=== PATIENT | male | born 1950 | race Caucasian/White ===

== ENCOUNTER 2022-05-14 14:53 | Inpatient (IN) ==
[2022-05-14] MEDS ORDERED: 0.9 % Sodium Chloride 1,000 ML IVC ONE (15:29)
[2022-05-14 15:45] LABS: Bilirubin,Urine Negative (Negative); Blood,Urine Negative (Negative); Clarity,Urine Clear (Clear); Color,Urine Yellow (Yellow); Glucose,Urine (UA) Normal (Normal); Ketones,Urine Negative (Negative); Leukocyte Esterase,Urine Negative (Negative); Nitrite,Urine Negative (Negative); Protein,Urine Negative (Neg-Trace); Urobilinogen,Urine Normal (Normal)
[2022-05-14 15:54] LABS: Basophils # 0.1 K/mcL (0.0-0.2); Basophils % 0.9 %; Eosinophils # 0.1 K/mcL (0.0-0.6); Eosinophils % 1.5 %; Hematocrit 39.3 % (37.5-50.1); Hemoglobin 13.1 g/dL (12.9-16.9); Immature Granulocytes % 0.3 % (0-4); Lymphocytes # 0.6 K/mcL (0.6-4.6); Lymphocytes % 7.7 %; Mean Corpuscular HGB Conc 33.3 g/dL (31.6-35.5); Mean Corpuscular Hemoglobin 30.3 pg (28.0-33.3); Mean Platelet Volume 10.8 fL (9.4-12.4); Monocytes # 1.4 K/mcL (0.0-1.3); Neutrophils # 5.7 K/mcL (1.6-8.9); Platelet Count 200 K/mcL (140-400); Red Blood Count 4.32 M/mcL (4.19-5.50); Segmented Neutrophils % 71.6 %; White Blood Count 7.9 K/mcL (4.3-11.1)
[2022-05-14 16:13] LABS: Alanine Aminotransferase 22 Units/L (7-52); Albumin 3.7 g/dL (3.5-5.7); Albumin/Globulin Ratio 1.5 (1.1-2.2); Alkaline Phosphatase 75 Units/L (34-104); Aspartate Amino Transferase 22 Units/L (13-39); BUN/Creatinine Ratio 12 (6-26); Bilirubin,Indirect 0.3 mg/dL (0.0-1.0); Bilirubin,Total 0.3 mg/dL (0.3-1.0); Blood Urea Nitrogen 12 mg/dL (8-23); Calcium 9.1 mg/dL (8.6-10.3); Carbon Dioxide 32 mEq/L (23-29); Chloride 95 mEq/L (98-107); Globulin 2.4 g/dL (2.4-3.5); Glucose 97 mg/dL (70-105); Osmolality,Calculated 276 (280-300); Potassium 4.1 mEq/L (3.5-5.1); Sodium 133 mEq/L (136-145); Total Protein 6.1 g/dL (6.4-8.9); Troponin I < 0.03 ng/mL (< 0.04); eGFR For African Americans > 60 (> 60); eGFR For Non-African Americans > 60 (> 60)
[2022-05-14] MEDS ORDERED: Naloxone 0.4 MG/ML INJ IVP PRN (16:53)
[2022-05-14] MEDS: Carbidopa/Levodopa 25/100 TABLET PO SCH (21:28)
[2022-05-14] MEDS: Acetaminophen 325 MG TABLET PO PRN (21:28)
[2022-05-14] MEDS: haloperidoL 1 MG TABLET PO SCH (21:28)
[2022-05-14] MEDS: Budesonide/Formoterol 160/4.5 1 PUFF INH IH SCH (22:17)
[2022-05-15] MEDS: *HR* Enoxaparin 40 MG/0.4 ML SYRINGE SQ SCH (06:16)
[2022-05-15] MEDS: Budesonide/Formoterol 160/4.5 1 PUFF INH IH SCH ×2 (09:09→22:24)
[2022-05-15] MEDS: Carbidopa/Levodopa 25/100 TABLET PO SCH ×3 (09:45→22:05)
[2022-05-15] MEDS: Loratadine 10 MG TABLET PO SCH (09:45)
[2022-05-15] MEDS: haloperidoL 1 MG TABLET PO SCH ×2 (09:45→22:05)
[2022-05-15] MEDS: Furosemide 20 MG TABLET PO SCH (09:46)
[2022-05-15] MEDS: dexAMETHasone 4 MG TABLET PO SCH (09:46)
[2022-05-15] MEDS: Fluticasone Propionate Nasal 50 MCG/SPRAY BOTTLE NS SCH (09:46)
[2022-05-15 09:58] LABS: Hematocrit 42.2 % (37.5-50.1); Hemoglobin 13.8 g/dL (12.9-16.9); Mean Corpuscular HGB Conc 32.7 g/dL (31.6-35.5); Mean Corpuscular Hemoglobin 30.5 pg (28.0-33.3); Mean Corpuscular Volume 93.4 fL (83.0-100.0); Mean Platelet Volume 11.4 fL (9.4-12.4); Platelet Count 205 K/mcL (140-400); Red Blood Count 4.52 M/mcL (4.19-5.50); Red Cell Distribution Width 15.4 % (11.5-14.5); White Blood Count 7.5 K/mcL (4.3-11.1)
[2022-05-15 10:16] LABS: BUN/Creatinine Ratio 10 (6-26); Blood Urea Nitrogen 11 mg/dL (8-23); Calcium 8.9 mg/dL (8.6-10.3); Carbon Dioxide 31 mEq/L (23-29); Chloride 99 mEq/L (98-107); Glucose 159 mg/dL (70-105); Magnesium 1.8 mg/dL (1.6-2.6); Osmolality,Calculated 289 (280-300); Potassium 3.6 mEq/L (3.5-5.1); Sodium 138 mEq/L (136-145); eGFR For African Americans > 60 (> 60); eGFR For Non-African Americans > 60 (> 60)
[2022-05-15] MEDS: Acetaminophen 325 MG TABLET PO PRN (22:06)
[2022-05-16] MEDS: *HR* Enoxaparin 40 MG/0.4 ML SYRINGE SQ SCH (05:25)
[2022-05-16] MEDS: Carbidopa/Levodopa 25/100 TABLET PO SCH ×3 (09:45→20:50)
[2022-05-16] MEDS: Furosemide 20 MG TABLET PO SCH (09:45)
[2022-05-16] MEDS: dexAMETHasone 4 MG TABLET PO SCH (09:45)
[2022-05-16] MEDS: haloperidoL 1 MG TABLET PO SCH ×2 (09:45→20:50)
[2022-05-16] MEDS: Fluticasone Propionate Nasal 50 MCG/SPRAY BOTTLE NS SCH (09:46)
[2022-05-16] MEDS: Loratadine 10 MG TABLET PO SCH (09:46)
[2022-05-16] MEDS: Budesonide/Formoterol 160/4.5 1 PUFF INH IH SCH ×2 (10:08→22:32)
[2022-05-16] MEDS: Acetaminophen 325 MG TABLET PO PRN (14:17)
[2022-05-17] MEDS: *HR* Enoxaparin 40 MG/0.4 ML SYRINGE SQ SCH (06:09)
[2022-05-17 07:08] LABS: Basophils % 0.2 %; Hematocrit 42.2 % (37.5-50.1); Immature Granulocytes % 0.3 % (0-4); Lymphocytes # 1.9 K/mcL (0.6-4.6); Lymphocytes % 12.7 %; Mean Corpuscular HGB Conc 33.2 g/dL (31.6-35.5); Mean Corpuscular Hemoglobin 30.1 pg (28.0-33.3); Mean Corpuscular Volume 90.8 fL (83.0-100.0); Mean Platelet Volume 11.4 fL (9.4-12.4); Monocytes # 1.6 K/mcL (0.0-1.3); Neutrophils # 11.3 K/mcL (1.6-8.9); Platelet Count 221 K/mcL (140-400); Red Blood Count 4.65 M/mcL (4.19-5.50); Red Cell Distribution Width 15.4 % (11.5-14.5); Segmented Neutrophils % 75.8 %; White Blood Count 14.9 K/mcL (4.3-11.1)
[2022-05-17 07:27] LABS: BUN/Creatinine Ratio 20 (6-26); Blood Urea Nitrogen 18 mg/dL (8-23); Calcium 8.5 mg/dL (8.6-10.3); Carbon Dioxide 32 mEq/L (23-29); Chloride 100 mEq/L (98-107); Glucose 99 mg/dL (70-105); Osmolality,Calculated 290 (280-300); Potassium 4.4 mEq/L (3.5-5.1); Sodium 139 mEq/L (136-145); eGFR For African Americans > 60 (> 60); eGFR For Non-African Americans > 60 (> 60)
[2022-05-17] MEDS ORDERED: Dexamethasone Sodium Phos/PF 10 MG/ML VIAL IVP SCH (09:00)
[2022-05-17] MEDS: Budesonide/Formoterol 160/4.5 1 PUFF INH IH SCH ×2 (09:40→21:28)
[2022-05-17] MEDS: haloperidoL 1 MG TABLET PO SCH ×2 (09:44→19:57)
[2022-05-17] MEDS: Carbidopa/Levodopa 25/100 TABLET PO SCH ×3 (09:44→19:57)
[2022-05-17] MEDS: Furosemide 20 MG TABLET PO SCH (09:44)
[2022-05-17] MEDS: Loratadine 10 MG TABLET PO SCH (09:44)
[2022-05-17] MEDS: Fluticasone Propionate Nasal 50 MCG/SPRAY BOTTLE NS SCH (09:46)
[2022-05-17] MEDS ORDERED: dexAMETHasone 4 MG TABLET PO SCH (09:51)
[2022-05-17] MEDS ORDERED: levoFLOXacin 750 MG/150 ML 750 MG/150 ML BAG IVPB SCH (11:15)
[2022-05-17] MEDS: Acetaminophen 325 MG TABLET PO PRN (19:57)
[2022-05-17] MEDS: levoFLOXacin 750 MG/150 ML 750 MG/150 ML BAG IVPB SCH (20:34)
[2022-05-17 23:46] LABS: Alanine Aminotransferase 26 Units/L (7-52); Aspartate Amino Transferase 27 Units/L (13-39)
[2022-05-18] MEDS: *HR* Enoxaparin 40 MG/0.4 ML SYRINGE SQ SCH (05:50)
[2022-05-18 06:48] LABS: Hematocrit 39.6 % (37.5-50.1); Hemoglobin 13.3 g/dL (12.9-16.9); Mean Corpuscular HGB Conc 33.6 g/dL (31.6-35.5); Mean Corpuscular Hemoglobin 30.5 pg (28.0-33.3); Mean Corpuscular Volume 90.8 fL (83.0-100.0); Platelet Count 216 K/mcL (140-400); Red Blood Count 4.36 M/mcL (4.19-5.50); Red Cell Distribution Width 15.3 % (11.5-14.5); White Blood Count 13.6 K/mcL (4.3-11.1)
[2022-05-18 07:19] LABS: Albumin 3.4 g/dL (3.5-5.7); Albumin/Globulin Ratio 1.2 (1.1-2.2); Bilirubin,Direct 0.1 mg/dL (0.0-0.2); Bilirubin,Indirect 0.5 mg/dL (0.0-1.0); Bilirubin,Total 0.6 mg/dL (0.3-1.0); Globulin 2.8 g/dL (2.4-3.5); Total Protein 6.2 g/dL (6.4-8.9)
[2022-05-18 07:22] LABS: BUN/Creatinine Ratio 15 (6-26); Blood Urea Nitrogen 13 mg/dL (8-23); Calcium 8.5 mg/dL (8.6-10.3); Carbon Dioxide 28 mEq/L (23-29); Chloride 101 mEq/L (98-107); Glucose 123 mg/dL (70-105); Magnesium 1.7 mg/dL (1.6-2.6); Osmolality,Calculated 285 (280-300); Potassium 4.1 mEq/L (3.5-5.1); Sodium 137 mEq/L (136-145); eGFR For African Americans > 60 (> 60); eGFR For Non-African Americans > 60 (> 60)
[2022-05-18] MEDS ORDERED: Remdesivir 200 MG in 0.9 % Sodium Chloride 100 ML IVPB ONE (09:00)
[2022-05-18] MEDS: Furosemide 20 MG TABLET PO SCH (09:08)
[2022-05-18] MEDS: Loratadine 10 MG TABLET PO SCH (09:08)
[2022-05-18] MEDS: haloperidoL 1 MG TABLET PO SCH ×2 (09:08→20:31)
[2022-05-18] MEDS: Dexamethasone Sodium Phos/PF 10 MG/ML VIAL IVP SCH (09:09)
[2022-05-18] MEDS: Fluticasone Propionate Nasal 50 MCG/SPRAY BOTTLE NS SCH (09:09)
[2022-05-18] MEDS: Carbidopa/Levodopa 25/100 TABLET PO SCH ×3 (09:09→20:31)
[2022-05-18] MEDS: Budesonide/Formoterol 160/4.5 1 PUFF INH IH SCH ×2 (09:11→22:17)
[2022-05-18 09:34] LABS: Ferritin 283 ng/mL (20-250)
[2022-05-18] MEDS: levoFLOXacin 750 MG/150 ML 750 MG/150 ML BAG IVPB SCH (20:32)
[2022-05-19] MEDS: *HR* Enoxaparin 40 MG/0.4 ML SYRINGE SQ SCH (05:52)
[2022-05-19 07:38] LABS: Basophils % 0.2 %; Hematocrit 37.6 % (37.5-50.1); Hemoglobin 12.6 g/dL (12.9-16.9); Immature Granulocytes % 0.6 % (0-4); Lymphocytes # 1.2 K/mcL (0.6-4.6); Lymphocytes % 10.1 %; Mean Corpuscular HGB Conc 33.5 g/dL (31.6-35.5); Mean Corpuscular Hemoglobin 30.3 pg (28.0-33.3); Mean Corpuscular Volume 90.4 fL (83.0-100.0); Mean Platelet Volume 10.8 fL (9.4-12.4); Monocytes # 1.3 K/mcL (0.0-1.3); Monocytes % 10.3 %; Platelet Count 233 K/mcL (140-400); Red Blood Count 4.16 M/mcL (4.19-5.50); Red Cell Distribution Width 15.1 % (11.5-14.5); Segmented Neutrophils % 78.8 %; White Blood Count 12.1 K/mcL (4.3-11.1)
[2022-05-19 07:52] LABS: Neutrophils # 9.5 K/mcL (1.6-8.9)
[2022-05-19 08:04] LABS: BUN/Creatinine Ratio 26 (6-26); Blood Urea Nitrogen 20 mg/dL (8-23); Calcium 8.4 mg/dL (8.6-10.3); Carbon Dioxide 28 mEq/L (23-29); Chloride 102 mEq/L (98-107); Glucose 125 mg/dL (70-105); Osmolality,Calculated 288 (280-300); Potassium 4.3 mEq/L (3.5-5.1); Sodium 137 mEq/L (136-145); eGFR For African Americans > 60 (> 60); eGFR For Non-African Americans > 60 (> 60)
[2022-05-19 08:05] LABS: Albumin 3.3 g/dL (3.5-5.7); Albumin/Globulin Ratio 1.2 (1.1-2.2); Bilirubin,Direct 0.1 mg/dL (0.0-0.2); Bilirubin,Indirect 0.3 mg/dL (0.0-1.0); Bilirubin,Total 0.4 mg/dL (0.3-1.0); Globulin 2.7 g/dL (2.4-3.5)
[2022-05-19] MEDS: Budesonide/Formoterol 160/4.5 1 PUFF INH IH SCH ×2 (08:40→20:58)
[2022-05-19] MEDS: Loratadine 10 MG TABLET PO SCH (09:43)
[2022-05-19] MEDS: haloperidoL 1 MG TABLET PO SCH ×2 (09:44→20:30)
[2022-05-19] MEDS: Furosemide 20 MG TABLET PO SCH (09:44)
[2022-05-19] MEDS: Fluticasone Propionate Nasal 50 MCG/SPRAY BOTTLE NS SCH (09:45)
[2022-05-19] MEDS: Carbidopa/Levodopa 25/100 TABLET PO SCH ×3 (09:45→20:30)
[2022-05-19] MEDS: Dexamethasone Sodium Phos/PF 10 MG/ML VIAL IVP SCH (10:57)
[2022-05-19] MEDS: Remdesivir 100 MG in 0.9 % Sodium Chloride 100 ML IVPB SCH (11:01)
[2022-05-19] MEDS: levoFLOXacin 750 MG/150 ML 750 MG/150 ML BAG IVPB SCH (20:31)
[2022-05-20] MEDS: Melatonin 3 MG TABLET PO PRN ×2 (01:47→21:47)
[2022-05-20 05:49] LABS: Hematocrit 35.7 % (37.5-50.1); Hemoglobin 12.1 g/dL (12.9-16.9); Mean Corpuscular HGB Conc 33.9 g/dL (31.6-35.5); Mean Corpuscular Hemoglobin 30.3 pg (28.0-33.3); Mean Corpuscular Volume 89.3 fL (83.0-100.0); Mean Platelet Volume 10.9 fL (9.4-12.4); Platelet Count 295 K/mcL (140-400); Red Cell Distribution Width 15.1 % (11.5-14.5); White Blood Count 11.3 K/mcL (4.3-11.1)
[2022-05-20 06:08] LABS: BUN/Creatinine Ratio 23 (6-26); Blood Urea Nitrogen 19 mg/dL (8-23); Calcium 8.3 mg/dL (8.6-10.3); Carbon Dioxide 28 mEq/L (23-29); Chloride 104 mEq/L (98-107); Glucose 130 mg/dL (70-105); Osmolality,Calculated 292 (280-300); Potassium 4.1 mEq/L (3.5-5.1); Sodium 139 mEq/L (136-145); eGFR For African Americans > 60 (> 60); eGFR For Non-African Americans > 60 (> 60)
[2022-05-20 06:09] LABS: Albumin 3.2 g/dL (3.5-5.7); Albumin/Globulin Ratio 1.2 (1.1-2.2); Bilirubin,Indirect 0.3 mg/dL (0.0-1.0); Bilirubin,Total 0.3 mg/dL (0.3-1.0); Globulin 2.6 g/dL (2.4-3.5); Total Protein 5.8 g/dL (6.4-8.9)
[2022-05-20] MEDS: *HR* Enoxaparin 40 MG/0.4 ML SYRINGE SQ SCH (06:12)
[2022-05-20] MEDS: Budesonide/Formoterol 160/4.5 1 PUFF INH IH SCH ×2 (09:10→20:51)
[2022-05-20] MEDS: haloperidoL 1 MG TABLET PO SCH ×2 (10:23→21:47)
[2022-05-20] MEDS: Furosemide 20 MG TABLET PO SCH (10:24)
[2022-05-20] MEDS: Loratadine 10 MG TABLET PO SCH (10:24)
[2022-05-20] MEDS: Carbidopa/Levodopa 25/100 TABLET PO SCH ×3 (10:24→21:47)
[2022-05-20] MEDS: Dexamethasone Sodium Phos/PF 10 MG/ML VIAL IVP SCH (10:25)
[2022-05-20] MEDS: Remdesivir 100 MG in 0.9 % Sodium Chloride 100 ML IVPB SCH (10:40)
[2022-05-20] MEDS: Fluticasone Propionate Nasal 50 MCG/SPRAY BOTTLE NS SCH (11:09)
[2022-05-20] MEDS: levoFLOXacin 750 MG/150 ML 750 MG/150 ML BAG IVPB SCH (21:47)
[2022-05-21] MEDS: *HR* Enoxaparin 40 MG/0.4 ML SYRINGE SQ SCH (06:06)
[2022-05-21 07:31] VITALS: BP 156/73; PULSE 69; RESP 18; TEMP 97.5
[2022-05-21 08:30] LABS: Albumin/Globulin Ratio 1.2 (1.1-2.2); Bilirubin,Direct 0.1 mg/dL (0.0-0.2); Bilirubin,Indirect 0.2 mg/dL (0.0-1.0); Bilirubin,Total 0.3 mg/dL (0.3-1.0); Globulin 2.5 g/dL (2.4-3.5); Total Protein 5.5 g/dL (6.4-8.9)
[2022-05-21] MEDS: Budesonide/Formoterol 160/4.5 1 PUFF INH IH SCH (08:35)
[2022-05-21] MEDS: Furosemide 20 MG TABLET PO SCH (09:48)
[2022-05-21] MEDS: Carbidopa/Levodopa 25/100 TABLET PO SCH ×2 (09:49→16:48)
[2022-05-21] MEDS: haloperidoL 1 MG TABLET PO SCH (09:49)
[2022-05-21] MEDS: Dexamethasone Sodium Phos/PF 10 MG/ML VIAL IVP SCH (09:49)
[2022-05-21] MEDS: Loratadine 10 MG TABLET PO SCH (09:50)
[2022-05-21] MEDS: Remdesivir 100 MG in 0.9 % Sodium Chloride 100 ML IVPB SCH (09:51)
[2022-05-21] MEDS: Fluticasone Propionate Nasal 50 MCG/SPRAY BOTTLE NS SCH (09:51)
[2022-05-21 16:09] VITALS: O2SAT 96
== END 2022-05-21 19:33 | disposition other institution (70) | DRG 177 ==
LOC: EMEROOPIK 14:53 → INPPIK 14:53
PROVIDERS: ADMIT Family Medicine; ATTEND Family Medicine

== ENCOUNTER 2022-05-21 11:11 | Inpatient (IN) ==
[~2022-05-21 11:11] MED LIST: Remdesivir 100 MG in 0.9 % Sodium Chloride 100 ML IVPB ONE
[2022-05-21] MEDS ORDERED: BROMPHENIRAMINE PO PRN (18:15)
[2022-05-21] MEDS ORDERED: MOM Conc 10 ML UD.LIQ PO PRN (18:15)
[2022-05-21] MEDS ORDERED: MAG HYDROX PO PRN (18:15)
[2022-05-21] MEDS ORDERED: PSEUDOEPHEDRINE PO PRN (18:15)
[2022-05-21] MEDS ORDERED: SIMETH PO PRN (18:15)
[2022-05-21] MEDS ORDERED: REMDESIVIR IVPB SCH (18:15)
[2022-05-21] MEDS ORDERED: DEXTROMETHORPHAN PO PRN (18:15)
[2022-05-21] MEDS ORDERED: AL HYDROX PO PRN (18:15)
[2022-05-21] MEDS ORDERED: Acetaminophen 325 MG TABLET PO PRN (20:57)
[2022-05-21] MEDS: Carbidopa/Levodopa 25/100 TABLET PO SCH (22:05)
[2022-05-21] MEDS: haloperidoL 1 MG TABLET PO SCH (22:06)
[2022-05-21] MEDS ORDERED: Mag Hydrox/Al Hydrox/Simeth 30 ML UDC PO PRN (22:38)
[2022-05-22] MEDS: *HR* Enoxaparin 40 MG/0.4 ML SYRINGE SQ SCH ×2 (06:23→06:26)
[2022-05-22] MEDS: Furosemide 20 MG TABLET PO SCH (08:39)
[2022-05-22] MEDS: levoFLOXacin 750 MG TABLET PO SCH (08:39)
[2022-05-22] MEDS: Vitamin E 200 UNIT (90MG) CAPSULE PO SCH (08:39)
[2022-05-22] MEDS: haloperidoL 1 MG TABLET PO SCH ×2 (08:40→20:08)
[2022-05-22] MEDS: Loratadine 10 MG TABLET PO SCH (08:40)
[2022-05-22] MEDS: Carbidopa/Levodopa 25/100 TABLET PO SCH ×3 (08:40→20:08)
[2022-05-22] MEDS: Pyridoxine (B-6) 50 MG TABLET PO SCH (08:40)
[2022-05-22] MEDS: Dexamethasone Sodium Phos/PF 10 MG/ML VIAL IVP SCH (08:41)
[2022-05-22] MEDS: Fluticasone Propionate Nasal 50 MCG/SPRAY BOTTLE NS SCH (08:41)
[2022-05-22] MEDS ORDERED: Remdesivir 100 MG in 0.9 % Sodium Chloride 100 ML IVPB ONE (09:00)
[2022-05-22] MEDS: Tiotropium 10 INH DOSE IH SCH (09:36)
[2022-05-23] MEDS: *HR* Enoxaparin 40 MG/0.4 ML SYRINGE SQ SCH (08:21)
[2022-05-23] MEDS: Tiotropium 10 INH DOSE IH SCH (09:26)
[2022-05-23] MEDS: Pyridoxine (B-6) 50 MG TABLET PO SCH (09:58)
[2022-05-23] MEDS: Loratadine 10 MG TABLET PO SCH (09:58)
[2022-05-23] MEDS: Vitamin E 200 UNIT (90MG) CAPSULE PO SCH (09:58)
[2022-05-23] MEDS: Carbidopa/Levodopa 25/100 TABLET PO SCH ×3 (09:58→20:19)
[2022-05-23] MEDS: levoFLOXacin 750 MG TABLET PO SCH (09:59)
[2022-05-23] MEDS: Fluticasone Propionate Nasal 50 MCG/SPRAY BOTTLE NS SCH (09:59)
[2022-05-23] MEDS: Furosemide 20 MG TABLET PO SCH (09:59)
[2022-05-23] MEDS: haloperidoL 1 MG TABLET PO SCH ×2 (10:00→20:19)
[2022-05-23] MEDS: dexAMETHasone 4 MG TABLET PO SCH (10:47)
[2022-05-23] MEDS: Dexamethasone Sodium Phos/PF 10 MG/ML VIAL IVP SCH (11:46)
[2022-05-23 14:01] LABS: Hematocrit 41.6 % (37.5-50.1); Mean Corpuscular HGB Conc 33.7 g/dL (31.6-35.5); Mean Corpuscular Hemoglobin 29.7 pg (28.0-33.3); Mean Corpuscular Volume 88.1 fL (83.0-100.0); Mean Platelet Volume 11.2 fL (9.4-12.4); Platelet Count 251 K/mcL (140-400); Red Blood Count 4.72 M/mcL (4.19-5.50); Red Cell Distribution Width 14.7 % (11.5-14.5); White Blood Count 20.1 K/mcL (4.3-11.1)
[2022-05-23 14:19] LABS: BUN/Creatinine Ratio 22 (6-26); Blood Urea Nitrogen 20 mg/dL (8-23); Carbon Dioxide 29 mEq/L (23-29); Chloride 99 mEq/L (98-107); Glucose 127 mg/dL (70-105); Osmolality,Calculated 288 (280-300); Potassium 4.6 mEq/L (3.5-5.1); Sodium 137 mEq/L (136-145); eGFR For African Americans > 60 (> 60); eGFR For Non-African Americans > 60 (> 60)
[2022-05-24] MEDS: Tiotropium 10 INH DOSE IH SCH (08:00)
[2022-05-24 08:47] LABS: Basophils # 0.1 K/mcL (0.0-0.2); Basophils % 0.9 %; Eosinophils # 0.1 K/mcL (0.0-0.6); Eosinophils % 0.4 %; Hematocrit 42.9 % (37.5-50.1); Hemoglobin 14.4 g/dL (12.9-16.9); Immature Granulocytes % 6.4 % (0-4); Lymphocytes # 3.5 K/mcL (0.6-4.6); Lymphocytes % 21.8 %; Mean Corpuscular HGB Conc 33.6 g/dL (31.6-35.5); Mean Corpuscular Hemoglobin 29.9 pg (28.0-33.3); Monocytes # 1.8 K/mcL (0.0-1.3); Monocytes % 11.4 %; Platelet Count 439 K/mcL (140-400); Red Blood Count 4.82 M/mcL (4.19-5.50); Segmented Neutrophils % 59.1 %
[2022-05-24 08:49] LABS: Neutrophils # 9.5 K/mcL (1.6-8.9)
[2022-05-24 09:07] LABS: BUN/Creatinine Ratio 23 (6-26); Blood Urea Nitrogen 20 mg/dL (8-23); Carbon Dioxide 32 mEq/L (23-29); Chloride 98 mEq/L (98-107); Glucose 88 mg/dL (70-105); Osmolality,Calculated 286 (280-300); Sodium 137 mEq/L (136-145); eGFR For African Americans > 60 (> 60); eGFR For Non-African Americans > 60 (> 60)
[2022-05-24] MEDS: Pyridoxine (B-6) 50 MG TABLET PO SCH (09:38)
[2022-05-24] MEDS: *HR* Enoxaparin 40 MG/0.4 ML SYRINGE SQ SCH ×2 (09:39→09:48)
[2022-05-24] MEDS: Carbidopa/Levodopa 25/100 TABLET PO SCH ×3 (09:39→20:47)
[2022-05-24] MEDS: haloperidoL 1 MG TABLET PO SCH ×2 (09:39→20:47)
[2022-05-24] MEDS: Loratadine 10 MG TABLET PO SCH (09:39)
[2022-05-24] MEDS: levoFLOXacin 750 MG TABLET PO SCH (09:39)
[2022-05-24] MEDS: dexAMETHasone 4 MG TABLET PO SCH (09:39)
[2022-05-24] MEDS: Furosemide 20 MG TABLET PO SCH (09:39)
[2022-05-24] MEDS: Fluticasone Propionate Nasal 50 MCG/SPRAY BOTTLE NS SCH (09:40)
[2022-05-24] MEDS: Vitamin E 200 UNIT (90MG) CAPSULE PO SCH (10:32)
[2022-05-24] MEDS: Benzonatate 100 MG CAPSULE PO PRN ×2 (12:07→21:17)
[2022-05-25] MEDS: *HR* Enoxaparin 40 MG/0.4 ML SYRINGE SQ SCH (04:49)
[2022-05-25] MEDS: Vitamin E 200 UNIT (90MG) CAPSULE PO SCH (08:49)
[2022-05-25] MEDS: dexAMETHasone 4 MG TABLET PO SCH (08:49)
[2022-05-25] MEDS: Pyridoxine (B-6) 50 MG TABLET PO SCH (08:50)
[2022-05-25] MEDS: Loratadine 10 MG TABLET PO SCH (08:50)
[2022-05-25] MEDS: Furosemide 20 MG TABLET PO SCH (08:50)
[2022-05-25] MEDS: haloperidoL 1 MG TABLET PO SCH ×2 (08:50→19:43)
[2022-05-25] MEDS: Carbidopa/Levodopa 25/100 TABLET PO SCH ×3 (08:51→19:43)
[2022-05-25] MEDS: Fluticasone Propionate Nasal 50 MCG/SPRAY BOTTLE NS SCH (08:54)
[2022-05-25] MEDS: Tiotropium 10 INH DOSE IH SCH (09:16)
[2022-05-26] MEDS: Tiotropium 10 INH DOSE IH SCH (08:44)
[2022-05-26] MEDS: *HR* Enoxaparin 40 MG/0.4 ML SYRINGE SQ SCH ×2 (09:07→09:21)
[2022-05-26] MEDS: Loratadine 10 MG TABLET PO SCH (09:07)
[2022-05-26] MEDS: Pyridoxine (B-6) 50 MG TABLET PO SCH (09:07)
[2022-05-26] MEDS: Benzonatate 100 MG CAPSULE PO PRN (09:07)
[2022-05-26] MEDS: haloperidoL 1 MG TABLET PO SCH ×2 (09:09→20:22)
[2022-05-26] MEDS: Furosemide 20 MG TABLET PO SCH (09:09)
[2022-05-26] MEDS: Vitamin E 200 UNIT (90MG) CAPSULE PO SCH (09:09)
[2022-05-26] MEDS: Carbidopa/Levodopa 25/100 TABLET PO SCH ×3 (09:09→20:22)
[2022-05-26] MEDS: Fluticasone Propionate Nasal 50 MCG/SPRAY BOTTLE NS SCH (09:10)
[2022-05-26 12:24] LABS: Basophils # 0.1 K/mcL (0.0-0.2); Basophils % 0.5 %; Eosinophils # 0.1 K/mcL (0.0-0.6); Eosinophils % 0.6 %; Hematocrit 46.8 % (37.5-50.1); Hemoglobin 15.6 g/dL (12.9-16.9); Immature Granulocytes % 2.6 % (0-4); Lymphocytes # 4.3 K/mcL (0.6-4.6); Mean Corpuscular HGB Conc 33.3 g/dL (31.6-35.5); Mean Corpuscular Hemoglobin 29.8 pg (28.0-33.3); Mean Corpuscular Volume 89.5 fL (83.0-100.0); Mean Platelet Volume 9.3 fL (9.4-12.4); Monocytes # 1.7 K/mcL (0.0-1.3); Monocytes % 7.7 %; Neutrophils # 14.8 K/mcL (1.6-8.9); Platelet Count 452 K/mcL (140-400); Red Blood Count 5.23 M/mcL (4.19-5.50); Segmented Neutrophils % 68.6 %; White Blood Count 21.6 K/mcL (4.3-11.1)
[2022-05-26 12:42] LABS: BUN/Creatinine Ratio 21 (6-26); Blood Urea Nitrogen 21 mg/dL (8-23); Calcium 9.3 mg/dL (8.6-10.3); Carbon Dioxide 35 mEq/L (23-29); Chloride 97 mEq/L (98-107); Glucose 102 mg/dL (70-105); Magnesium 1.9 mg/dL (1.6-2.6); Osmolality,Calculated 287 (280-300); Sodium 137 mEq/L (136-145); eGFR For African Americans > 60 (> 60); eGFR For Non-African Americans > 60 (> 60)
[2022-05-26] MEDS ORDERED: Piperacillin/Tazobactam 3.375 GM in 0.9 % Sodium Chloride Mini Bag 100 ML IVPB SCH (16:00)
[2022-05-26] MEDS: Piperacillin/Tazobactam 3.375 GM in 0.9 % Sodium Chloride Mini Bag 100 ML IVPB SCH (20:23)
[2022-05-27] MEDS: *HR* Enoxaparin 40 MG/0.4 ML SYRINGE SQ SCH (05:40)
[2022-05-27] MEDS: Piperacillin/Tazobactam 3.375 GM in 0.9 % Sodium Chloride Mini Bag 100 ML IVPB SCH ×2 (05:41→17:10)
[2022-05-27 08:02] LABS: Basophils # 0.1 K/mcL (0.0-0.2); Basophils % 0.5 %; Eosinophils # 0.3 K/mcL (0.0-0.6); Eosinophils % 1.7 %; Hematocrit 43.3 % (37.5-50.1); Hemoglobin 14.4 g/dL (12.9-16.9); Immature Granulocytes % 2.4 % (0-4); Lymphocytes # 4.1 K/mcL (0.6-4.6); Lymphocytes % 22.3 %; Mean Corpuscular HGB Conc 33.3 g/dL (31.6-35.5); Mean Corpuscular Volume 90.2 fL (83.0-100.0); Mean Platelet Volume 9.6 fL (9.4-12.4); Monocytes # 1.3 K/mcL (0.0-1.3); Monocytes % 7.2 %; Neutrophils # 12.2 K/mcL (1.6-8.9); Platelet Count 400 K/mcL (140-400); Red Cell Distribution Width 15.1 % (11.5-14.5); Segmented Neutrophils % 65.9 %; White Blood Count 18.5 K/mcL (4.3-11.1)
[2022-05-27 08:13] LABS: BUN/Creatinine Ratio 20 (6-26); Blood Urea Nitrogen 20 mg/dL (8-23); Calcium 8.6 mg/dL (8.6-10.3); Carbon Dioxide 34 mEq/L (23-29); Chloride 99 mEq/L (98-107); Glucose 89 mg/dL (70-105); Osmolality,Calculated 286 (280-300); Potassium 4.1 mEq/L (3.5-5.1); Sodium 137 mEq/L (136-145); eGFR For African Americans > 60 (> 60); eGFR For Non-African Americans > 60 (> 60)
[2022-05-27] MEDS: Loratadine 10 MG TABLET PO SCH (09:05)
[2022-05-27] MEDS: Pyridoxine (B-6) 50 MG TABLET PO SCH (09:05)
[2022-05-27] MEDS: Carbidopa/Levodopa 25/100 TABLET PO SCH ×3 (09:05→20:10)
[2022-05-27] MEDS: haloperidoL 1 MG TABLET PO SCH ×2 (09:06→20:10)
[2022-05-27] MEDS: Fluticasone Propionate Nasal 50 MCG/SPRAY BOTTLE NS SCH (09:06)
[2022-05-27] MEDS: Vitamin E 200 UNIT (90MG) CAPSULE PO SCH (09:06)
[2022-05-27] MEDS: Furosemide 20 MG TABLET PO SCH (09:06)
[2022-05-27] MEDS: Tiotropium 10 INH DOSE IH SCH (09:19)
[2022-05-27] MEDS: Budesonide/Formoterol 160/4.5 1 PUFF INH IH SCH (21:54)
[2022-05-28] MEDS: Piperacillin/Tazobactam 3.375 GM in 0.9 % Sodium Chloride Mini Bag 100 ML IVPB SCH ×4 (03:47→18:09)
[2022-05-28] MEDS: Vitamin E 200 UNIT (90MG) CAPSULE PO SCH (08:11)
[2022-05-28] MEDS: Loratadine 10 MG TABLET PO SCH (08:12)
[2022-05-28] MEDS: Furosemide 20 MG TABLET PO SCH (08:12)
[2022-05-28] MEDS: Pyridoxine (B-6) 50 MG TABLET PO SCH (08:12)
[2022-05-28] MEDS: haloperidoL 1 MG TABLET PO SCH ×2 (08:12→19:47)
[2022-05-28] MEDS: Fluticasone Propionate Nasal 50 MCG/SPRAY BOTTLE NS SCH (08:13)
[2022-05-28] MEDS: Carbidopa/Levodopa 25/100 TABLET PO SCH ×3 (08:13→19:47)
[2022-05-28] MEDS: *HR* Enoxaparin 40 MG/0.4 ML SYRINGE SQ SCH (08:16)
[2022-05-28 08:21] LABS: Basophils # 0.1 K/mcL (0.0-0.2); Basophils % 0.4 %; Eosinophils # 0.2 K/mcL (0.0-0.6); Eosinophils % 1.4 %; Hematocrit 42.6 % (37.5-50.1); Hemoglobin 14.2 g/dL (12.9-16.9); Immature Granulocytes % 1.6 % (0-4); Lymphocytes # 2.7 K/mcL (0.6-4.6); Lymphocytes % 17.1 %; Mean Corpuscular HGB Conc 33.3 g/dL (31.6-35.5); Mean Corpuscular Hemoglobin 30.2 pg (28.0-33.3); Mean Corpuscular Volume 90.6 fL (83.0-100.0); Mean Platelet Volume 9.8 fL (9.4-12.4); Monocytes # 1.3 K/mcL (0.0-1.3); Monocytes % 8.2 %; Neutrophils # 11.4 K/mcL (1.6-8.9); Platelet Count 349 K/mcL (140-400); Red Cell Distribution Width 14.8 % (11.5-14.5); Segmented Neutrophils % 71.3 %
[2022-05-28 08:37] LABS: BUN/Creatinine Ratio 18 (6-26); Blood Urea Nitrogen 18 mg/dL (8-23); Calcium 8.5 mg/dL (8.6-10.3); Carbon Dioxide 32 mEq/L (23-29); Chloride 98 mEq/L (98-107); Glucose 93 mg/dL (70-105); Magnesium 1.8 mg/dL (1.6-2.6); Osmolality,Calculated 282 (280-300); Sodium 135 mEq/L (136-145); eGFR For African Americans > 60 (> 60); eGFR For Non-African Americans > 60 (> 60)
[2022-05-28] MEDS: Tiotropium 10 INH DOSE IH SCH (09:24)
[2022-05-28] MEDS: Budesonide/Formoterol 160/4.5 1 PUFF INH IH SCH ×2 (09:24→22:40)
[2022-05-29] MEDS: Piperacillin/Tazobactam 3.375 GM in 0.9 % Sodium Chloride Mini Bag 100 ML IVPB SCH ×2 (03:30→10:25)
[2022-05-29] MEDS: *HR* Enoxaparin 40 MG/0.4 ML SYRINGE SQ SCH (06:21)
[2022-05-29 07:14] VITALS: BP 127/72; PULSE 69; TEMP 98.5
[2022-05-29] MEDS: Furosemide 20 MG TABLET PO SCH (07:32)
[2022-05-29] MEDS: Loratadine 10 MG TABLET PO SCH (07:32)
[2022-05-29] MEDS: Fluticasone Propionate Nasal 50 MCG/SPRAY BOTTLE NS SCH (07:32)
[2022-05-29] MEDS: haloperidoL 1 MG TABLET PO SCH (07:32)
[2022-05-29] MEDS: Carbidopa/Levodopa 25/100 TABLET PO SCH (07:32)
[2022-05-29] MEDS: Pyridoxine (B-6) 50 MG TABLET PO SCH (07:32)
[2022-05-29] MEDS: Vitamin E 200 UNIT (90MG) CAPSULE PO SCH (07:33)
[2022-05-29] MEDS: Budesonide/Formoterol 160/4.5 1 PUFF INH IH SCH (08:42)
[2022-05-29] MEDS: Tiotropium 10 INH DOSE IH SCH (08:43)
[2022-05-29 08:46] VITALS: RESP 16; O2SAT 96
== END 2022-05-29 11:45 | disposition other institution (70) | DRG 177 ==
LOC: INPPIK 20:23
PROVIDERS: ADMIT Family Medicine; ATTEND Student in an Organized Health Care Education/Training Program